=== PATIENT | female | born 1995 | race Caucasian/White ===

== ENCOUNTER 2018-12-25 15:02 | Emergency (ER) | payer OTHER ==
[2018-12-25 15:09] VITALS: TEMP 98.8; BMI 28.1
[2018-12-25] MEDS ORDERED: FAMOTIDINE 20 MG/50 ML IVPB 20 MG/50 ML MG IVPB ONE ×2 (15:09→15:13)
[2018-12-25] MEDS ORDERED: methylPREDNISolone NA SUCC 125 MG/2 ML VIAL IVPUSH ONE (15:09)
--- NOTE | 2018-12-25 15:09 | PDOC ---
Rapid Medical Evaluation Time Seen by Provider: 12/25/18 15:06 Medical Evaluation: 12/25/18 15:06 I have performed a brief in-person evaluation of this patient. The patient presents with a chief complaint of: wheezing and facial swelling after eating pizza Pertinent physical exam findings: No stridor. Lungs CTAB. periorbital swelling. I have ordered the following: IV, solumedrol, pepcid The patient will proceed to the ED for further evaluation. Discharge Disposition - Diagnosis Allergic reaction - Referrals - Patient Instructions - Post Discharge Activity
[2018-12-25] MEDS ORDERED: methylPREDNISolone NA SUCC 125 MG/2 ML VIAL ONE (15:13)
[2018-12-25] MEDS ORDERED: ALBUTEROL SO4 0.083% IH SOL 2.5 MG/3 ML VIAL.NEB. NEB ONE ×2 (15:18→15:31)
--- NOTE | 2018-12-25 15:35 | PDOC ---
Documentation entered by Juventino Young SCRIBE, acting as scribe for Rohit Pozo MD. Rohit Pozo MD: This documentation has been prepared by the Hector mathews Daniel, SCRIBE, under my direction and personally reviewed by me in its entirety. I confirm that the documentation accurately reflects all work, treatment, procedures, and medical decision making performed by me. History of Present Illness - General Chief Complaint: Allergic Reaction Stated Complaint: ALLERGIC REACTION Time Seen by Provider: 12/25/18 15:06 - History of Present Illness Initial Comments: 12/25/18 15:31 23 F with no PMH presents to ED with allergic reaction. Pt states that she ate a pizza with sausage and pepperoni about 1 hour ago. Pt states that 20 minutes after eating it, she began to have itchy eyes. She then developed swelling to her face and an itchy throat. Pt denies any lip or tongue swelling. Denies any difficulty breathing or chest pain but states that she feels "wheezy". Pt has never had an allergic reaction before. Denies any known allergies. Past History - Past Medical History Allergies/Adverse Reactions: Allergies Allergy/AdvReac Type Severity Reaction Status Date / Time No Known Allergies Allergy Verified 12/25/18 15:11 Home Medications: Ambulatory Orders Epinephrine [Epipen 2-Yovani] 0.3 mg IJ ASDIR #1 kit 12/25/18 Prednisone [Prednisone 50 MG TABLETS] 50 mg PO DAILY #3 tab 12/25/18 COPD: No - Suicide/Smoking/Psychosocial Hx Smoking History: Never smoked Information on smoking cessation initiated: No Hx Alcohol Use: No Drug/Substance Use Hx: No Review of Systems - Review of Systems Comments:: 12/25/18 15:32 "GENERAL/CONSTITUTIONAL: No fever or chills. No weakness. HEAD, EYES, EARS, NOSE AND THROAT: + swelling to eyes, + itchy eyes and throat, No change in vision. No ear pain or discharge. No sore throat. CARDIOVASCULAR: No chest pain, no shortness of breath, no loss of consciousness RESPIRATORY: No cough, wheezing, or hemoptysis. GASTROINTESTINAL: No nausea, vomiting, diarrhea or constipation. GENITOURINARY: No dysuria, frequency, or change in urination. MUSCULOSKELETAL: No joint or muscle swelling or pain. No neck or back pain. SKIN: No rash NEUROLOGIC: No vertigo, no change in strength/sensation. ENDOCRINE: No increased thirst. No abnormal weight change. HEMATOLOGIC/LYMPHATIC: No anemia, easy bleeding, or history of blood clots. ALLERGIC/IMMUNOLOGIC: No hives or skin allergy. *Physical Exam - Vital Signs Last Vital Signs Temp Pulse Resp BP Pulse Ox 98.8 F 99 H 19 156/78 99 12/25/18 15:07 12/25/18 15:07 12/25/18 15:07 12/25/18 15:07 12/25/18 15:07 - Physical Exam Comments: 12/25/18 15:33 "GENERAL: Awake, alert, and fully oriented, in no acute distress. HEAD: No signs of trauma EYES: + periorbital edema, PERRLA, EOMI, sclera anicteric, conjunctiva clear ENT: Auricles normal inspection, hearing grossly normal, nares patent, oropharynx clear without exudates. Moist mucosa NECK: Nontender, no stepoffs, Normal ROM, supple, no lymphadenopathy, JVD, or masses LUNGS: Breath sounds equal, clear to auscultation bilaterally. No wheezes, and no crackles HEART: Regular rate and rhythm, normal S1 and S2, no murmurs, rubs or gallops ABDOMEN: Soft, nontender, normoactive bowel sounds. No guarding, no rebound. No masses EXTREMITIES: Normal range of motion, no edema. No clubbing or cyanosis. No cords, erythema, or tenderness NEUROLOGICAL: Cranial nerves II through XII intact. 5/5 strength and sensation in all extremities, Normal speech, normal gait, normal cerebellar function SKIN: Warm, Dry, normal turgor, no rashes or lesions noted. ED Treatment Course - Medications Given in the ED: ED Medications Discontinued Medications Generic Name Dose Route Start Last Admin Trade Name Freq PRN Reason Stop Dose Admin Methylprednisolone Sodium Succinate 125 mg 12/25/18 15:09 12/25/18 15:23 Solu-Medrol - IVPUSH 12/25/18 15:10 125 mg ONCE ONE Administration Medical Decision Making - Medical Decision Making 12/25/18 15:33 23 F with allergic reaction. No evidence of airway involvement on exam. Lungs clear, no wheezing or stridor. No tongue swelling. - Benadryl, pepcid, solumedrol - Observe in ED 07/11/19 17:16 Pt reassessed - now has complete resolution of her symptoms. Pt is well appearing, with normal vitals. Clinically stable for DC at this time. I discussed the physical exam findings, ancillary test results and final diagnoses with the patient. I answered all of the patient's questions. The patient was satisfied with the care received and felt comfortable with the discharge plan and treatment plan. The patient agrees to follow up with the primary care physician within 24-72 hours. *DC/Admit/Observation/Transfer Diagnosis at time of Disposition: Allergic reaction - Discharge Dispostion Disposition: HOME - Referrals Referrals: Belkis Hernandez MD [Primary Care Provider] - Reva Maldonado MD [Non Staff, Medical] - - Patient Instructions Printed Discharge Instructions: DI for General Allergic Reactions Additional Instructions: Take prednisone once daily starting tomorrow for three more days. Take benadryl every 8 hours as needed for itching. If you experience any worsening itching or swelling to your face, any swelling of your lips or tongue, difficulty breathing or swallowing, or any other concerning symptoms, return to the ER immediately. Otherwise, follow up with an telecommunications officer within 1 week for further testing. Ask your primary doctor for a referral or call the number provided to make an appointment. A prescription for an Epi-pen has been sent to your pharmacy. Pick it up and keep it with you at all times in case of severe allergic reactions. - Post Discharge Activity Forms/Work/School Notes: Back to Work - Attestations Physician Attestion: 12/25/18 17:21 I, Dr. Rohit Pozo MD, attest that this document has been prepared under my direction and personally reviewed by me in its entirety. I further attest, that it accurately reflects all work, treatment, procedures and medical decision -making performed by me.
[2018-12-25 17:41] VITALS: BP 132/75; PULSE 96
== END 2018-12-25 17:40 | disposition home or self-care (01) ==
LOC: JER 15:02
PROC: 3E0F7GC Introduction of Other Therapeutic Substance into Respiratory Tract, Via Natural or Artificial Opening (ICD-10-PCS; principal; 2018-12-25)
PROC: 3E033GC Introduction of Other Therapeutic Substance into Peripheral Vein, Percutaneous Approach (ICD-10-PCS; 2018-12-25)
PROC: 3E033GC Introduction of Other Therapeutic Substance into Peripheral Vein, Percutaneous Approach (ICD-10-PCS; 2018-12-25)
PROC: 3E0333Z Introduction of Anti-inflammatory into Peripheral Vein, Percutaneous Approach (ICD-10-PCS; 2018-12-25)
DX: T78.1XXA Other adverse food reactions, not elsewhere classified, initial encounter (principal); T78.49XA Other allergy, initial encounter; H05.223 Edema of bilateral orbit; X58.XXXA Exposure to other specified factors, initial encounter
CPT/HCPCS: 99282-25

== ENCOUNTER 2019-01-15 19:43 | Emergency (ER) | payer OTHER ==
[2019-01-15 19:52] VITALS: BP 143/79; PULSE 98; TEMP 98.6; BMI 28.1
--- NOTE | 2019-01-15 19:52 | PDOC ---
Rapid Medical Evaluation Chief Complaint: Injury Time Seen by Provider: 01/15/19 19:49 Medical Evaluation: Allergies Allergy/AdvReac Type Severity Reaction Status Date / Time No Known Allergies Allergy Verified 12/25/18 15:11 01/15/19 19:49 I have performed a brief in-person evaluation of this patient. The patient presents with a chief complaint of: R ankle pain s/p twisting it while jumping 15mns ago. No knee/hip/back pain Pertinent physical exam findings: R ankle swelling, tenderness around lateral malleolus. Limited ROM from pain I have ordered the following:WIll give ibuprofen, do an xray and reassess The patient will proceed to the ED for further evaluation. Discharge Disposition - Diagnosis Right ankle injury Qualifiers: Encounter type: initial encounter Qualified Code(s): S99.911A - Unspecified injury of right ankle, initial encounter - Referrals - Patient Instructions - Post Discharge Activity
[2019-01-15] MEDS ORDERED: IBUPROFEN 600 MG TABLET (FP) PO ONE ×2 (19:53→21:41)
--- NOTE | 2019-01-15 21:28 | PDOC ---
History of Present Illness - General Chief Complaint: Injury Stated Complaint: ANKLE INJURY Time Seen by Provider: 01/15/19 19:49 History Source: Patient - History of Present Illness Initial Comments: 01/15/19 21:31 23-year-old female complaining of right ankle pain after twisting ankle while working out. Patient reports pain is worse with movement. Noted to have swelling to the right ankle. Patient is able to flex and extend ankle passively. No past medical history Past History - Past Medical History Allergies/Adverse Reactions: Allergies Allergy/AdvReac Type Severity Reaction Status Date / Time No Known Allergies Allergy Verified 01/15/19 19:52 Home Medications: Ambulatory Orders Epinephrine [Epipen 2-Yovani] 0.3 mg IJ ASDIR #1 kit 12/25/18 Prednisone [Prednisone 50 MG TABLETS] 50 mg PO DAILY #3 tab 12/25/18 Ibuprofen 600 mg PO QID PRN #20 tablet 01/15/19 COPD: No - Suicide/Smoking/Psychosocial Hx Smoking History: Never smoked Hx Alcohol Use: No Drug/Substance Use Hx: No Review of Systems - Review of Systems Able to Perform ROS?: Yes Is the patient limited Pashto proficient: No Constitutional: No: Symptoms Reported, See HPI, Chills, Diaphoresis, Fever, Loss of Appetite, Malaise, Night Sweats, Weakness, Weight Stable, Unintentional Wgt. Loss, Unexplained wgt Loss, Other Integumentary: Yes: Other (ankle pain) *Physical Exam - Vital Signs Last Vital Signs Temp Pulse Resp BP Pulse Ox 98.6 F 98 H 18 143/79 99 01/15/19 19:49 01/15/19 19:49 01/15/19 19:49 01/15/19 19:49 01/15/19 19:49 - Physical Exam General Appearance: Yes: Appropriately Dressed Musculoskeletal: positive: Other (able to flex and extend right ankle. Swelling to the right ankle.ain with weightbearing.) Extremity: positive: Normal Capillary Refill Integumentary: positive: Normal Color, Dry, Warm Neurologic: positive: Fully Oriented, Alert Progress Note - Progress Note Progress Note: A: right ankle pain P: XRAY: NO ACUTE FRACTURE IBUPROFEN ORTHO FOLLOW UP OUTPATIENT *DC/Admit/Observation/Transfer Diagnosis at time of Disposition: Right ankle injury Qualifiers: Encounter type: initial encounter Qualified Code(s): S99.911A - Unspecified injury of right ankle, initial encounter Right ankle sprain Qualifiers: Encounter type: initial encounter Involved ligament of ankle: unspecified ligament Qualified Code(s): S93.401A - Sprain of unspecified ligament of right ankle, initial encounter - Discharge Dispostion Disposition: HOME - Prescriptions Prescriptions: Ibuprofen 600 mg PO QID PRN #20 tablet PRN Reason: Pain - Referrals Referrals: Belkis Hernandez MD [Primary Care Provider] - Luis Enrique Green MD [Staff Physician] - Call tomorrow - Patient Instructions Printed Discharge Instructions: Ankle Sprain Additional Instructions: KEEP ANKLE SPLINT ON. FOLLOW UP WITH AN ORTHOPEDIC DOCTOR IN 1 WEEK IF SYMPTOMS PERSIST APPLY ICE FOR 24 HOURS TAKE IBUPROFEN PRESCRIBED RETURN TO THE ER FOR ANY WORSENING SYMPTOMS - Post Discharge Activity Forms/Work/School Notes: Back to Work
== END 2019-01-15 21:56 | disposition home or self-care (01) ==
LOC: JERFT 19:43
PROC: 2W3QX1Z Immobilization of Right Lower Leg using Splint (ICD-10-PCS; principal; 2019-01-15)
DX: S93.401A Sprain of unspecified ligament of right ankle, initial encounter (principal); X50.0XXA Overexertion from strenuous movement or load, initial encounter; Y93.B9 Activity, other involving muscle strengthening exercises; Y92.89 Other specified places as the place of occurrence of the external cause; Y99.8 Other external cause status
CPT/HCPCS: 73610-TC-RT-FY; 73630-TC-RT-FY; 99281-25